=== PATIENT | male | born 1960 | race Caucasian/White ===

== ENCOUNTER 2017-08-12 08:19 | Day surgery (SDC) | payer BC, OTHER ==
[~2017-08-12] VITALS: Ht 175.3 cm; Wt 108.9 kg
[~2017-08-12 08:19] MED LIST: ERGO400 PO; FISH OIL + D31 EACH PO; Hair, Skin & N1 EACH PO; Omeprazole20 M1 PO; Prinivil10 MG PO; Vitamin B Comple1 EA PO; Vitamin C60 MG PO
== END 2017-08-12 22:51 | disposition home or self-care (01) ==
LOC: ORSCMMR 08:19
PROVIDERS: Surgery
PROC: 0VB50ZX Excision of Scrotum, Open Approach, Diagnostic (ICD-10-PCS; principal; 2017-08-12 10:00)
PROC: 0YU50JZ Supplement Right Inguinal Region with Synthetic Substitute, Open Approach (ICD-10-PCS; principal; 2017-08-12 10:00)
DX: K40.90 Unilateral inguinal hernia, without obstruction or gangrene, not specified as recurrent (principal); N50.9 Disorder of male genital organs, unspecified; I10 Essential (primary) hypertension; G47.33 Obstructive sleep apnea (adult) (pediatric); K21.9 Gastro-esophageal reflux disease without esophagitis; Z79.899 Other long term (current) drug therapy
CPT/HCPCS: 87070; 87077; 87186; 87205; 88305; C1781; J0690; J1100; J1885; J2250; J2270; J2405; J3010; J7120

== ENCOUNTER → 2017-12-23 | Outpatient (CLI) | payer BC, OTHER | END | disposition home or self-care (01) | LOC: PLD 07:35 → LAB SHORT 07:35 | DX: D48.5 Neoplasm of uncertain behavior of skin (principal) | CPT/HCPCS: 88305 ==

== ENCOUNTER 2018-10-15 16:32 | Inpatient (IN) | payer BC, OTHER ==
[~2018-10-15] VITALS: Ht 177.8 cm; Wt 105.9 kg
[~2018-10-15 16:32] MED LIST changes: -Prinivil10 MG PO; +Prinivil5 MG PO
[2018-10-15 17:22] LABS: BASOPHILS ABSOLUTE AUTO 0.05 K/mm3 (0.00-0.23); BASOPHILS PERCENT AUTO 1 % (0-2); EOSINOPHILS ABSOLUTE AUTO 0.22 K/mm3 (0.00-0.68); EOSINOPHILS PERCENT AUTO 2 % (0-6); Hematocrit 46.9 % (37.0-53.0); Hemoglobin 15.2 g/dL (13.5-17.5); IMMATURE GRAN ABSOLUTE AUTO 0.04 K/mm3 (0.00-0.10); IMMATURE GRAN PERCENT AUTO 0 % (0-1); LYMPHOCYTES ABSOLUTE AUTO 1.74 K/mm3 (0.84-5.20); LYMPHOCYTES PERCENT AUTO 16 % (21-46); MONOCYTES ABSOLUTE AUTO 0.94 K/mm3 (0.16-1.47); MONOCYTES PERCENT AUTO 9 % (4-13); Mean Corpuscular HGB 27.8 pg (26.0-34.0); Mean Corpuscular HGB Conc 32.4 g/dL (31.5-36.5); Mean Corpuscular Volume 86 fL (80-100); Mean Platelet Volume 10.3 fL (9.1-12.4); NEUTROPHILS ABSOLUTE AUTO 8.05 K/mm3 (1.96-9.15); NEUTROPHILS PERCENT AUTO 73 % (41-73); Platelet Count 201 K/mm3 (150-400); RDW Coefficient Variation 13.2 % (11.7-14.2); RDW Standard Deviation 41.5 fL (35.1-46.3); Red Blood Cell Count 5.47 M/mm3 (4.30-5.90); White Blood Cell Count 11.04 K/mm3 (4.00-11.30)
[2018-10-15 17:47] LABS: Magnesium, Blood 2.3 mg/dL (1.6-2.4)
[2018-10-15 17:54] LABS: Alanine Aminotransfer (ALT/SGP 64 U/L (12-78); Albumin, Blood 4.2 g/dL (3.4-5.0); Albumin/Globulin Ratio 1.2 (0.8-1.8); Alk Phos 83 U/L (50-136); Anion Gap 9 mmol/L (6-16); Aspartate Aminotrans (AST/SGOT 49 U/L (12-37); Bilirubin, Total 0.5 mg/dL (0.1-1.0); Blood Urea Nitrogen 23 mg/dL (8-24); CO2, Blood 23 mmol/L (21-32); Calcium, Blood 9.4 mg/dL (8.5-10.1); Chloride, Blood 106 mmol/L (98-108); Globulin, Blood 3.6 g/dL (2.2-4.0); Glomerular Filtration Rate >60 (60-); Glucose, Blood 120 mg/dL (70-99); Potassium, Blood 3.4 mmol/L (3.5-5.5); Sodium, Blood 138 mmol/L (136-145); Total Protein, Blood 7.8 g/dL (6.4-8.2); Troponin I 0.495 ng/mL (0.000-0.040)
[2018-10-15 17:55] LABS: Thyroid Stimulating Hormone 0.978 uIU/mL (0.360-4.800)
[2018-10-15 19:59] LABS: International Normalized Ratio 0.96; Prothrombin Time Results 10.2 Sec (9.7-11.5)
--- NOTE | 2018-10-15 20:50 | NUR ---
Admission/Barrow of Care: Patient arrived to unit via stretcher, accompanied by ED nurse. Stood and transferred to ICU bed without difficulty. C/o mid-chest dull pain/burning 2/, states has been present off/on for several months. Denies need for pain medications. Instructed to inform staff on any increase or change in pain. Denies dyspnea or SOB, O2-96% on RA. Heart rhythm shows NSR- 80's, BP stable. Peripheral IV's x2 patent and intact. Heparin gtt infusing at 13u/kg/hr, dosed at 88kg, confirmed with EMAR and 2nd RN. Call light in reach, able to make needs known. Will continue to monitor for pain, safety, comfort.
[2018-10-16 04:54] LABS: BASOPHILS ABSOLUTE AUTO 0.05 K/mm3 (0.00-0.23); BASOPHILS PERCENT AUTO 0 % (0-2); EOSINOPHILS ABSOLUTE AUTO 0.28 K/mm3 (0.00-0.68); EOSINOPHILS PERCENT AUTO 2 % (0-6); Hematocrit 47.3 % (37.0-53.0); Hemoglobin 15.4 g/dL (13.5-17.5); IMMATURE GRAN ABSOLUTE AUTO 0.04 K/mm3 (0.00-0.10); IMMATURE GRAN PERCENT AUTO 0 % (0-1); LYMPHOCYTES ABSOLUTE AUTO 2.33 K/mm3 (0.84-5.20); LYMPHOCYTES PERCENT AUTO 18 % (21-46); MONOCYTES ABSOLUTE AUTO 1.33 K/mm3 (0.16-1.47); MONOCYTES PERCENT AUTO 10 % (4-13); Mean Corpuscular HGB 28.2 pg (26.0-34.0); Mean Corpuscular HGB Conc 32.6 g/dL (31.5-36.5); Mean Corpuscular Volume 87 fL (80-100); Mean Platelet Volume 10.5 fL (9.1-12.4); NEUTROPHILS ABSOLUTE AUTO 9.15 K/mm3 (1.96-9.15); NEUTROPHILS PERCENT AUTO 69 % (41-73); Platelet Count 195 K/mm3 (150-400); RDW Coefficient Variation 13.2 % (11.7-14.2); Red Blood Cell Count 5.47 M/mm3 (4.30-5.90); White Blood Cell Count 13.18 K/mm3 (4.00-11.30)
[2018-10-16 05:30] LABS: Anion Gap 9 mmol/L (6-16); Blood Urea Nitrogen 22 mg/dL (8-24); Bun/Creatinine Ratio 31.4 (12.0-20.0); CHOL/HDL RATIO 3.9; CO2, Blood 23 mmol/L (21-32); Calcium, Blood 8.7 mg/dL (8.5-10.1); Chloride, Blood 108 mmol/L (98-108); Cholesterol 175 mg/dL (50-200); Glomerular Filtration Rate >60 (60-); Glucose, Blood 125 mg/dL (70-99); HDL Cholesterol 45 mg/dL (>39); LDL/HDL RATIO 2.4; Low Density Lipoprotein Chol 108 mg/dL (0-110); Potassium, Blood 4.1 mmol/L (3.5-5.5); Sodium, Blood 140 mmol/L (136-145); Triglycerides 111 mg/dL (30-160); Very Low Density Lipoprot Chol 22 mg/dL (6-32)
--- NOTE | 2018-10-16 06:03 | NUR ---
Shift Summary: Patient slept throughout remainder of shift. Continues to have dull chest pain/burning sensation 2/10, no change or increase throughout shift. VSS, denies dyspnea or SOB. Stood to void via urinal x2, without difficulty. Peripheral IV's x2 remain patent and intact, heparin gtt infusing without difficulty. Call light in reach, makes needs known. Will continue to monitor until report to day shift RN.
--- NOTE | 2018-10-16 07:50 | NUR ---
CARE ASSUMED CARE AND REPORT ASSUMED FROM IWONA DENNISON. PT SITTING UP IN BED, A/O X 3, CALM AND APPROPRIATE. C/O SUBSTERNAL, DULL CHEST PAIN AT 3/10. STATES PAIN HAS NOT CHANGED SINCE LASTNIGHT. DENIES NAUSEA AND DENIES ABD PAIN. AND SON BEDSIDE. LUNG SOUNDS CLEAR. NO MURMUR HEARD. NSR, HR 70S. BP WNL. HEPARIN GTT INFUSING AT 14 UNIS/HR. CALL LIGHT WITHIN REACH. PT INDEPENDENT OUT OF BED. WILL CONTINUE TO MONITOR.
--- NOTE | 2018-10-16 09:35 | NUR ---
WARRANTY CLERK 0920 - PT TAKEN TO WARRANTY CLERK FOR ANGIOGRAM BY WARRANTY CLERK STAFF. AM MEDS HELD AND WILL ADMINISTER WHEN RETURNS. BEDSIDE ECHO COMPLETED PRIOR TO LEAVING.
--- NOTE | 2018-10-16 11:18 | NUR ---
ARRIVAL TO ICU 1035 - PT ARRIVES FROM [facility] HAND TO ICU POST ANGIOGRAM. SHEATH SECURED IN R GROIN WITH HEPARIN PRESSURE BAG ATTACHED. PEDAL PULSES PALPABLE AND LEG WARM. TR BAND SECURED ON R WRIST AND RADIAL PULSES PALPABLE. HEPARIN GTT RESTARTED AT 14 UNITS/HR PER MD REQUEST. PT LYING FLAT WITH R LEG SECURED STRAIGHT. PT EDUCATED ON NEED TO REMAIN FLAT AND EDUCATED ABOUT SHEATH. R ARM SECURED IN ARM BOARD. FAMILY BEDSIDE AND UPDATED ON PLAN TO TRANSFER. AWAITING BED PLACEMENT. WILL CONTINUE TO [facility].
--- NOTE | 2018-10-16 11:22 | NUR ---
Echocardiogram using 0.45ml of Definity contrast performed.
--- NOTE | 2018-10-16 12:49 | NUR ---
TRANSFER REPORT CALLED TO MIRIAM AT [facility] ICU. ASSISTED WITH TRANSFERRING ONTO [facility]. HEPARIN GTT REMAINED INFUSING TA 14 UNIT/KG/HR. ONCE ONTO [facility], SHEATH PLACEMENT AND PULSES VERIFIED. NO SIGNS OF BLEEDING OR DISPLACEMENT. EMS CREW EDUCATED ON SHEATH, TR BAND, AND HEPARIN. PT LEFT [facility] AT 1235.
== END 2018-10-16 12:35 | disposition short-term general hospital (02) | DRG 281 ==
LOC: ER 16:32 → ICUW 18:54
PROVIDERS: Emergency Medicine; Physician Assistant; ADMIT Family Medicine
PROC: B2111ZZ Fluoroscopy of Multiple Coronary Arteries using Low Osmolar Contrast (ICD-10-PCS; principal; 2018-10-16)
DX: I21.4 Non-ST elevation (NSTEMI) myocardial infarction (principal); I47.1 Supraventricular tachycardia; E66.9 Obesity, unspecified; Z68.34 Body mass index [BMI] 34.0-34.9, adult; I10 Essential (primary) hypertension; E87.6 Hypokalemia; G47.33 Obstructive sleep apnea (adult) (pediatric); I77.1 Stricture of artery
CPT/HCPCS: 36415; 71046; 80048; 80053; 80061; 83735; 84443; 84484; 85025; 85379; 85610; 85730; 93005; 93010; 93458; 96365; 99152; 99153; 99285-25; C1769; C1894; C8929; J0153; J1644; J2250; J3010; J7030; J7040; Q9957; Q9967

== ENCOUNTER 2019-04-08 15:19 | Observation (INO) | payer BC, OTHER ==
[~2019-04-08] VITALS: Ht 177.8 cm; Wt 107.6 kg
[2019-04-08 16:04] LABS: BASOPHILS ABSOLUTE AUTO 0.06 K/mm3 (0.00-0.23); BASOPHILS PERCENT AUTO 1 % (0-2); EOSINOPHILS ABSOLUTE AUTO 0.23 K/mm3 (0.00-0.68); EOSINOPHILS PERCENT AUTO 3 % (0-6); Hematocrit 46.4 % (37.0-53.0); Hemoglobin 15.1 g/dL (13.5-17.5); IMMATURE GRAN ABSOLUTE AUTO 0.02 K/mm3 (0.00-0.10); IMMATURE GRAN PERCENT AUTO 0 % (0-1); LYMPHOCYTES ABSOLUTE AUTO 1.74 K/mm3 (0.84-5.20); LYMPHOCYTES PERCENT AUTO 19 % (21-46); MONOCYTES ABSOLUTE AUTO 1.03 K/mm3 (0.16-1.47); MONOCYTES PERCENT AUTO 11 % (4-13); Mean Corpuscular HGB 27.7 pg (26.0-34.0); Mean Corpuscular HGB Conc 32.5 g/dL (31.5-36.5); Mean Corpuscular Volume 85 fL (80-100); NEUTROPHILS ABSOLUTE AUTO 6.02 K/mm3 (1.96-9.15); NEUTROPHILS PERCENT AUTO 66 % (41-73); Platelet Count 201 K/mm3 (150-400); RDW Coefficient Variation 13.5 % (11.7-14.2); RDW Standard Deviation 41.8 fL (35.1-46.3); Red Blood Cell Count 5.46 M/mm3 (4.30-5.90)
[2019-04-08 16:22] LABS: Alanine Aminotransfer (ALT/SGP 40 U/L (12-78); Albumin, Blood 4.3 g/dL (3.4-5.0); Albumin/Globulin Ratio 1.2 (0.8-1.8); Alk Phos 92 U/L (50-136); Anion Gap 5 mmol/L (6-16); Aspartate Aminotrans (AST/SGOT 32 U/L (12-37); Bilirubin, Total 0.9 mg/dL (0.1-1.0); Blood Urea Nitrogen 20 mg/dL (8-24); CO2, Blood 28 mmol/L (21-32); Calcium, Blood 8.9 mg/dL (8.5-10.1); Chloride, Blood 105 mmol/L (98-108); Creatinine, Blood 0.72 mg/dL (0.60-1.20); Globulin, Blood 3.7 g/dL (2.2-4.0); Glomerular Filtration Rate >60 (60-); Glucose, Blood 107 mg/dL (70-99); Potassium, Blood 4.1 mmol/L (3.5-5.5); Sodium, Blood 138 mmol/L (136-145)
[2019-04-08 16:27] LABS: Troponin I <0.015 ng/mL (0.000-0.040)
[2019-04-08] MEDS ORDERED: Carvedilol3.125 MG PO (16:44)
[2019-04-08] MEDS ORDERED: ATORVASTATIN CA40 MG PO (16:44)
[2019-04-08] MEDS ORDERED: CLOP75 PO (16:45)
[2019-04-08] MEDS ORDERED: Aspir 8181 MG PO (16:45)
[2019-04-08] MEDS ORDERED: NITR.4SL SL (16:45)
[2019-04-08] MEDS ORDERED: ASCO500 PO (21:32)
[2019-04-08] MEDS ORDERED: VITAMIN B122500 MCG PO (21:33)
[2019-04-08] MEDS ORDERED: TOCO1000 PO (21:33)
[2019-04-08] MEDS ORDERED: VITAMIN D3400 UNIT PO (21:35)
--- NOTE | 2019-04-09 00:09 | NUR ---
04/08/19 2105 PT ADMITTED TO ROOM 360 PER WHEELCHAIR FROM ER, HAPPY AND COOPERATIVE.
--- NOTE | 2019-04-09 04:40 | NUR ---
SHIFT SUMMARY: 58 Y/O MALE RESTED COMFORTABLY ALL SHIFT, DENIES NAUSEA, CHEST PAIN OR SOB, TELEMETRY REFLECTS SINUS BRADYCARDIA WITH HEART RATE 54 PER PASSPORT SUPPORT ASSOCIATE NICANOR, ALERT AND ORIENTED X 4, BED LOW POSITION, CALL LIGHT AT SIDE.
--- NOTE | 2019-04-09 13:22 | NUR ---
Patient is lying in bed and alert. Patient's spouse, Susanne, comes in and out of the room answering phone calls. Patient shares his maria esther journey and their struggle to connect on with a jainism. They also explain that their son was in my class from back when I taught high school. They state that he is a school vocational educator now. I listen empathically, explore their family dynamics, provide pastoral breastfeeding peer counselor and prayer. Patient responds well and voices appreciation for the visit.
[2019-04-09] MEDS ORDERED: OMEPRAZOLE20 M1 PO (13:28)
--- NOTE | 2019-04-09 15:21 | NUR ---
DISCHARGE NOTE. PATIENT HAD NO COMPLAINTS OF CHEST PAIN UPON ASSESSMENT THIS MORNING. HE WAS EAGER TO DISCHARGE. HE WILL FOLLOW UP WITH [facility] AND ATTEND A STRESS TEST IF THE PCP BELIEVES THIS IS INDICATED. HE AMBULATED SELF OUT OF HOSPITAL WITH HIS . IV REMOVED.
== END 2019-04-09 13:35 | disposition home or self-care (01) ==
LOC: ER 15:19 → MEDS 15:20 → ENPENDDIS 04-09 13:08 → MEDS 04-09 13:35
PROVIDERS: Physician Assistant; ADMIT Internal Medicine
DX: R07.89 Other chest pain (principal); R00.1 Bradycardia, unspecified; I25.10 Atherosclerotic heart disease of native coronary artery without angina pectoris; I25.2 Old myocardial infarction; K21.9 Gastro-esophageal reflux disease without esophagitis; I10 Essential (primary) hypertension; Z95.5 Presence of coronary angioplasty implant and graft; Z79.899 Other long term (current) drug therapy; Z79.82 Long term (current) use of aspirin; Z79.01 Long term (current) use of anticoagulants
CPT/HCPCS: 36415; 71046; 80053; 83735; 84484; 85025; 93005; 93010; 96372; 99285-25; G0378; J1650

== ENCOUNTER → 2019-05-24 | Outpatient (CLI) | payer BC, OTHER ==
[~2019-05-24] MED LIST changes: +ASCO500 PO; +ATORVASTATIN CA40 MG PO; +Aspir 8181 MG PO; +CLOP75 PO; +Carvedilol3.125 MG PO; +NITR.4SL SL; +OMEPRAZOLE20 M1 PO; +TOCO1000 PO; +VITAMIN B122500 MCG PO; +VITAMIN D3400 UNIT PO
== END | disposition home or self-care (01) ==
LOC: PLD 10:35 → LAB SHORT 10:35
DX: D18.01 Hemangioma of skin and subcutaneous tissue (principal)
CPT/HCPCS: 88305

== ENCOUNTER → 2020-02-01 | Outpatient (CLI) | payer BC, OTHER | END | disposition home or self-care (01) | LOC: LAB SHORT 16:15 → LAB EV 16:15 | DX: K21.9 Gastro-esophageal reflux disease without esophagitis (principal) | CPT/HCPCS: 87338 ==

== ENCOUNTER → 2022-11-04 | Outpatient (CLI) | payer BC, OTHER | END | disposition home or self-care (01) | LOC: LAB SHORT 10:48 | DX: L83 Acanthosis nigricans (principal); L57.0 Actinic keratosis | CPT/HCPCS: 88305 ==

== ENCOUNTER → 2023-07-07 | Outpatient (CLI) | payer BC | LOC: LAB 09:53 → LAB SHORT 09:53 | DX: C44.719 Basal cell carcinoma of skin of left lower limb, including hip (principal) | CPT/HCPCS: 88305 ==